=== PATIENT | female | born 1965 | race Caucasian/White ===

== ENCOUNTER → 2016-03-14 | Outpatient (CLI) | payer OTHER ==
[~2016-03-14] MED LIST: DOXY100C76 PO; LEVO100T48 PO
--- NOTE | 2016-03-14 14:17 | MAMMOGRAPHY REPORT ---
BILATERAL DIGITAL DIAGNOSTIC MAMMOGRAM TOMOSYNTHESIS WITH CAD AND TARGETED RIGHT ULTRASOUND: 03/14/19 17 CLINICAL HISTORY: Six-month follow-up of right breast mass. TECHNIQUE: Breast tomosynthesis in addition to standard 2D mammography was performed. Current study was also evaluated with a Computer Aided Detection (CAD) system. Bilateral CC and MLO 2-D and isabella synthesis images were obtained. COMPARISON: Comparison is made to exams dated: 09/12/2015 mammogram, 09/12/2015 ultrasound, 03/14/2015 mammogram, 03/03/2015 mammogram, 03/14/2015 ultrasound, and 09/24/2010 mammogram - [facility]. BREAST COMPOSITION: The tissue of both breasts is heterogeneously dense, which may obscure small ma sses. FINDINGS: There has been no significant interval change mammographically compared to prior exams. Again noted is a subtle oval circumscribed 8 mm mass seen within the right lateral posterior breast on the cc tomosynthesis images only. This is stable compared to the prior August 2015 exam. The peter debbie of both breasts are stable compared to prior exams, without suspicious masses, calcifications, or areas of architectural distortion noted. Targeted ultrasound was performed of the area of the previously seen right breast mass. In the righ t breast at 9:00, 7 cm and the nipple, there is an oval circumscribed anechoic mass with posterior a coustic enhancement which measures 3 x 3 x 6 mm. This is consistent with a benign simple cyst. Adj acent to this mass is an oval anechoic versus hypoechoic parallel mass with circumscribed margins, w hich measures 10 x 6 x 6 mm. When accounting for differences in measurement technique, the mass meza s not appear significantly changed compared to the August 2015 exam. This may account for the stable mammographic mass and is probably benign and may represent a cyst versus a solid mass such as a fibr oadenoma. Recommend another short interval follow-up 6 months. IMPRESSION: ACR-BI-RADS CATEGORY 3: PROBABLY BENIGN, TARGETED ULTRASOUND ACR-BI-RADS CATEGORY 3: [place] OBABLY BENIGN 1. Hypoechoic 10 mm mass in the right breast at 9:00, which is not significantly changed compared to the August 2015 exam and may correspond with the stable circumscribed mammographic mass. The mass is probably benign and may represent a cyst versus a solid mass such as a fibroadenoma. Recommend sherrell rt interval follow-up diagnostic tomosynthesis mammograms of the right breast and ultrasound in 6 mo nths to confirm longer stability. 2. No mammographic evidence of malignancy in the left breast. The patient has been verbally notified of the results. Approximately 10% of breast cancers are not detected with mammography. A negative mammographic repor t should not delay biopsy if a clinically suggestive mass is present. Juliana Zhu M.D. ah/:03/14/2016 10:26:14 Warp Doffer: Kaylan Reynoso RT(R)([place]), [facility] letter sent: Follow Up Recommended 3 BI-RADS Code: ACR-BI-RADS Category 3: Probably Benign Ultrasound BI-RADS: ACR-BI-RADS Category 3: P robably Benign
== END | disposition home or self-care (01) ==
LOC: C.MAMM 09:17
PROVIDERS: ATTEND Family Medicine
DX: N63 Unspecified lump in breast (principal)

== ENCOUNTER → 2016-07-03 | Outpatient (CLI) | payer OTHER ==
[2016-07-03 13:08] LABS: THYROID STIMULATING HORMONE 0.137 uIu/ml (0.300-4.500)
[2016-07-04 14:44] LABS: THYROGLOBULIN <0.1 NG/ML (2.8-40.9)
== END | disposition home or self-care (01) ==
LOC: C.LAB1850 10:51
PROVIDERS: ATTEND Internal Medicine Endocrinology, Diabetes & Metabolism
DX: C73 Malignant neoplasm of thyroid gland (principal); E89.0 Postprocedural hypothyroidism

== ENCOUNTER → 2016-09-12 | Outpatient (CLI) | payer OTHER ==
--- NOTE | 2016-09-12 15:42 | MAMMOGRAPHY REPORT ---
UNILATERAL RIGHT DIGITAL DIAGNOSTIC MAMMOGRAM TOMOSYNTHESIS WITH CAD AND TARGETED RIGHT ULTRASOUND: CLINICAL HISTORY: 50-year-old woman presents for follow-up in the right breast. She was initially ca llback from screening in February 2015 for a 10 mm nodular asymmetry in the lateral posterior right br east, 7 cm distal to the nipple. Subsequent follow-up exams demonstrated a small benign cyst and a c ircumscribed benign-appearing 10 mm mass in the 9:00 axis on ultrasound. TECHNIQUE: Right breast tomosynthesis in addition to standard 2D mammography was performed. Current s [place] was also evaluated with a Computer Aided Detection (CAD) system. COMPARISON: Comparison is made to exams dated: 03/14/2016 ultrasound, 03/14/2016 mammogram, 09/12/2015 mammogram, 09/12/2015 ultrasound, 03/14/2015 mammogram, and 03/03/2015 mammogram - [facility]. BREAST COMPOSITION: The tissue of the right breast is heterogeneously dense, which may obscure small masses. FINDINGS: The initial 10 mm nodular asymmetry in the lateral posterior right breast, 7 cm distal to t he nipple is less conspicuous comparing to the February 2015 mammograms. However, now there is possib ly a subtle area of architectural distortion more laterally in the posterior right breast (CC tomosyn thesis slice 2431). No corresponding mass or definite architectural distortion is seen on the MLO t omosynthesis images. There is a stable benign-appearing calcification in the upper outer quadrant of the right breast. No obvious new cluster of microcalcifications, other suspicious mass or areas of architectural distortion. Further evaluation with ultrasound was performed. Targeted ultrasound was performed throughout the lateral right breast. A benign anechoic cyst is aga in seen in the 9:00 axis, 7 cm from the nipple, measuring 3.3 x 3.4 x 4.5 mm. In the adjacent 9:00 a xis, 6 cm from the nipple, a circumscribed hypoechoic solid versus cystic mass is again seen measurin g 9.0 x 5.2 x 5.4 mm. This does not appear significantly changed comparing to the prior ultrasounds given slight differences in technique. There are several additional ill-defined hypoechoic shadowing areas throughout the 8:00, 9:00 and 10:00 axes of the right breast rendering the sonographic evaluat ion of the tissue technically difficult. However, no other discrete solid or cystic mass is identifi ed. There is no definite sonographic correlate for the possible architectural distortion seen mammog raphically. Therefore, definitive characterization with a breast MRI is needed to exclude the possib ility of an enhancing mass or infiltrative process in this area. IMPRESSION: ACR BI-RADS CATEGORY 0: INCOMPLETE EVALUATION: NEED ADDITIONAL IMAGING EVALUATION, TARG ETED ULTRASOUND ACR BI-RADS CATEGORY 0: INCOMPLETE EVALUATION: NEED ADDITIONAL IMAGING EVALUATION 1. Bilateral breast MRI is recommended for further evaluation of a questionable area of architectura l distortion in the lateral posterior right breast, slightly lateral to the initial nodular asymmetry which was identified on screening mammogram in February 2015. Given this subtle mammographic finding is only seen on the CC view, and lack of visualization on the MLO view, heterogeneously dense breast s and technically difficult right breast ultrasound due to multiple hypoechoic shadowing areas within the tissue, definitive characterization with physiologic imaging is needed to exclude the possibilit y of an infiltrative process or subtle enhancing mass. 2. Generally stable appearance of 2 previously identified circumscribed lesions in the 9:00 right br east on ultrasound. Pending MRI results, may obtain one more follow-up ultrasound in 6 months to ens ure longer stability. These results and recommendations were discussed with the patient at the time of the exam. Approximately 10% of breast cancers are not detected with mammography. A negative mammographic report should not delay biopsy if a clinically suggestive mass is present. Clover Sanchez M.D. ay/:09/12/2016 12:37:15 Catering Sales Manager: Brianda MACARIO(R)(M), [facility] letter sent: Addl Imaging 0 BI-RADS Code: ACR BI-RADS Category 0: Incomplete Evaluation: Need Additional Imaging Evaluation Ult rasound BI-RADS: ACR BI-RADS Category 0: Incomplete Evaluation: Need Additional Imaging Evaluation
== END | disposition home or self-care (01) ==
LOC: C.MAMM 09:15
PROVIDERS: ATTEND Family Medicine
DX: Z12.31 Encounter for screening mammogram for malignant neoplasm of breast (principal); N64.89 Other specified disorders of breast

== ENCOUNTER → 2016-12-09 | Outpatient (CLI) | payer BC | END | disposition home or self-care (01) | LOC: C.PAPS 07:54 | PROVIDERS: ATTEND Obstetrics & Gynecology | DX: Z01.419 Encounter for gynecological examination (general) (routine) without abnormal findings (principal) ==

== ENCOUNTER → 2017-07-10 | Outpatient (CLI) | payer BC | END | disposition home or self-care (01) | LOC: C.LABBC 11:44 | PROVIDERS: ATTEND Internal Medicine Endocrinology, Diabetes & Metabolism | DX: E89.0 Postprocedural hypothyroidism (principal) ==